=== PATIENT | male | born 1990 | race Two or more races ===

== ENCOUNTER 2017-04-28 20:33 | Emergency (ER) | payer SELFPAY ==
[~2017-04-28] VITALS: Ht 170.2 cm; Wt 81.6 kg
[~2017-04-28 20:33] MED LIST: CEPH500C PO; TRAM1TAB56 PO
[2017-04-28 20:45] VITALS: BP 152/81
--- NOTE | 2017-04-28 21:03 | PHYS DOC ---
Past Medical History Past Medical History: No Pertinent History Past Surgical History: No Surgical History Alcohol Use: None Drug Use: None Adult General Chief Complaint Chief Complaint: Congestion HPI HPI Patient is a 27 year old male presents to the emergency department with family member who speaks Australian. Patient speaks Sudanese only. They provided information that the patient has had a cough for the last 2 weeks and is having left back pain towards the upper back. He stated he only has the pain and discomfort when he coughs. He has not taken anything for the cough and congestion. They deny any fever, chills or any nausea vomiting. He denies the cough being productive. Review of Systems Review of Systems Constitutional: Denies fever or chills [] Eyes: Denies change in visual acuity, redness, or eye pain [] HENT: nasal congestion denies sore throat [] Respiratory: cough denies shortness of breath [] Cardiovascular: No additional information not addressed in HPI [] GI: Denies abdominal pain, nausea, vomiting, bloody stools or diarrhea [] : Denies dysuria or hematuria [] Musculoskeletal: Denies back pain or joint pain [] Integument: Denies rash or skin lesions [] Neurologic: Denies headache, focal weakness or sensory changes [] Endocrine: Denies polyuria or polydipsia [] Allergies Allergies Allergies Coded Allergies Type Severity Reaction Last Updated Verified No Known Drug Allergies 10/03/13 No Physical Exam Physical Exam Constitutional: Well developed, well nourished, no acute distress, non-toxic appearance. [] HENT: Normocephalic, atraumatic, bilateral external ears normal, oropharynx moist, no oral exudates, nose normal. Bilateral tympanic membranes appear to be normal. Throat with no erythematous no redness no exudate noted. No anterior cervical adenopathy noted. Eyes: PERRLA, EOMI, conjunctiva normal, no discharge. [] Neck: Normal range of motion, no tenderness, supple, no stridor. [] Cardiovascular:Heart rate regular rhythm, no murmur [] Lungs & Thorax: Bilateral breath sounds clear to auscultation [] Skin: Warm, dry, no erythema, no rash. [] Back: No tenderness Extremities: No tenderness, no cyanosis, no clubbing, ROM intact, no edema. [] Neurologic: Alert and oriented X 3, normal motor function, normal sensory function, no focal deficits noted. [] Psychologic: Affect normal, judgement normal, mood normal. [] Current Patient Data Vital Signs Vital Signs Date Time Temp Pulse Resp B/P (MAP) Pulse Ox O2 Delivery O2 Flow Rate FiO2 04/28/17 20:45 99.5 95 16 97 Room Air 99.5 EKG EKG [] Radiology/Procedures Radiology/Procedures [] Course & Med Decision Making Course & Med Decision Making Pertinent Labs and Imaging studies reviewed. (See chart for details) X-rays were negative for any abnormalities per Dr. Miguel.patient was provided with x-ray results. Recommended Mucinex DM [id number] antibiotics will be provided as well as prednisone. Patient will be discharged home in stable condition signs symptoms to return back to emergency department has been provided. All questions and concerns been answered at the bedside. Recommended ibuprofen for the back pain and discomfort. [] Dragon Disclaimer Dragon Disclaimer This electronic medical record was generated, in whole or in part, using a voice recognition dictation system. Departure Departure Impression: Primary Impression: URI (upper respiratory infection) Disposition: 01 HOME, SELF-CARE Condition: STABLE Referrals: TONJA AMADOR MD (PCP) Patient Instructions: Upper Respiratory Infection, Adult, [id number] Additional Instructions: Activity as tolerated. Medications as prescribed. Mucinex DM may be taken as instructed by [employer] systems admin [id number]. Tylenol or ibuprofen for fever chills or generalized body aches and discomfort. Drink plenty of fluids. Follow-up with primary care physician next week. Return back to emergency prior signs symptoms of become worse. Scripts Prednisone (PREDNISONE) 20 Mg Tablet 40 MG PO DAILY, #14 TAB Prov: ADALI MONTIEL APRN 04/28/17 Amoxicillin (AMOXICILLIN) 500 Mg Capsule 1 CAP PO BID, #20 CAP Prov: ADALI MONTIEL APRN 04/28/17 ADALI MNOTIEL APRN Apr 28, 2017 21:03
[2017-04-28] MEDS ORDERED: PRED20TA PO (21:12)
[2017-04-28] MEDS ORDERED: AMOX500C PO (21:12)
--- NOTE | 2017-04-29 09:38 | RAD ---
Chest, 2 views, 04/28/2017: History: Cough, back pain The heart size and pulmonary vascularity are normal. The lungs are clear. There is no evidence of pleural fluid. There is slight loss of height of the approximately the T6 vertebral body. IMPRESSION: 1. No acute cardiopulmonary abnormality is detected. 2. Slight loss of height of the T6 vertebral body of indeterminate age. Note: The findings were called to personnel in the [facility] ER at 9:35 AM on 04/29/2017.
== END 2017-04-28 21:37 | disposition home or self-care (01) ==
LOC: ER 20:33
DX: J06.9 Acute upper respiratory infection, unspecified (principal)
CPT/HCPCS: 71020; 99284

== ENCOUNTER 2017-05-02 00:29 | Emergency (ER) | payer SELFPAY ==
[~2017-05-02] VITALS: Ht 170.2 cm; Wt 81.6 kg
[~2017-05-02 00:29] MED LIST changes: +AMOX500C PO; +PRED20TA PO
--- NOTE | 2017-05-02 00:39 | PHYS DOC ---
Past Medical History Past Medical History: No Pertinent History Past Surgical History: No Surgical History Alcohol Use: None Drug Use: None Adult General Chief Complaint Chief Complaint: Congestion HPI HPI Patient is a 27 year old Togolese speaking male presents to the emergency department with a 2 week history of upper respiratory symptoms. 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 Patient reports she's had a half week history of upper respiratory symptoms. He states that he was evaluated in the emergency department 3 days ago and prescribed amoxicillin and prednisone for an upper respiratory infection. He states he began taking the medication just today but seems to got worse. He reports persistent cough without fever, nausea, vomiting, chest pain, abdominal pain. Review of Systems Review of Systems Constitutional: Denies fever or chills [] Eyes: Denies change in visual acuity, redness, or eye pain [] HENT: Denies nasal congestion or sore throat [] Respiratory: Cough, wheezing Cardiovascular: No additional information not addressed in HPI [] GI: Denies abdominal pain, nausea, vomiting, bloody stools or diarrhea [] : Denies dysuria or hematuria [] Musculoskeletal: Denies back pain or joint pain [] Integument: Denies rash or skin lesions [] Neurologic: Denies headache, focal weakness or sensory changes [] Endocrine: Denies polyuria or polydipsia [] Current Medications Current Medications Current Medications Medications (Trade) Dose Ordered Sig/Marybeth Start Time Stop Time Status Last Admin Dose Admin Albuterol/ Ipratropium (Duoneb) 3 ml 1X ONCE 05/02/17 01:00 05/02/17 01:01 DC 05/02/17 01:00 3 ML Allergies Allergies Allergies Coded Allergies Type Severity Reaction Last Updated Verified No Known Drug Allergies 10/03/13 No Physical Exam Physical Exam Constitutional: Well developed, well nourished, no acute distress, non-toxic appearance. [] HENT: Normocephalic, atraumatic, bilateral external ears normal, oropharynx moist, posterior pharynx injected, no oral exudates, nose normal. [] Eyes: PERRLA, EOMI, conjunctiva normal, no discharge. [] Neck: Normal range of motion, no tenderness, supple, no stridor. [] Cardiovascular:Heart rate regular rhythm, no murmur [] Lungs & Thorax: Inspiratory extra wheezing throughout, symmetrical chest wall movement and pressure expiration, no retractions no use of the sensory muscles. Abdomen: Bowel sounds normal, soft, no tenderness, no masses, no pulsatile masses. [] Skin: Warm, dry, no erythema, no rash. [] Back: No tenderness, no CVA tenderness. [] Extremities: No tenderness, no cyanosis, no clubbing, ROM intact, no edema. [] Neurologic: Alert and oriented X 3, normal motor function, normal sensory function, no focal deficits noted. [] Current Patient Data Vital Signs Vital Signs Date Time Temp Pulse Resp B/P (MAP) Pulse Ox O2 Delivery O2 Flow Rate FiO2 05/02/17 00:59 97 Room Air 05/02/17 00:40 98.5 77 16 98.5 EKG EKG [] Radiology/Procedures Radiology/Procedures [] Course & Med Decision Making Course & Med Decision Making Pertinent Labs and Imaging studies reviewed. (See chart for details) [] Reevaluation: Patient received DuoNeb treatment, wheezing resolved. Persistent right posterior lower lobe rhonchi. Patient reports that he feels significantly better. I've asked that he stop the amoxicillin, he will take Biaxin, continue the prednisone as previously directed and albuterol will be prescribed per [facility]I inhaler. Patient verbalized understanding is in agreement the plan. He was advised to return to the emergency Department for new symptoms or concerns or worsening of current condition. He was also provided with smoking cessation information Dragon Disclaimer Dragon Disclaimer This electronic medical record was generated, in whole or in part, using a voice recognition dictation system. Departure Departure Impression: Primary Impression: Pneumonia Disposition: 01 HOME, SELF-CARE Condition: STABLE Referrals: TONJA AMADOR MD (PCP) Patient Instructions: Metered Dose Inhaler with Spacer, Pneumonia, Adult, Smoking Cessation Additional Instructions: Stop the amoxicillin. Continue prednisone as previously directed. Scripts Albuterol Sulfate (PROAIR HFA INHALER) 8.5 Gm Hfa.aer.ad 2 PUFF INH PRN Q6HRS Y for SHORTNESS OF BREATH, #2 INHALER 0 Refills Prov: LARRY YANES APRN 05/02/17 Clarithromycin (BIAXIN) 500 Mg Tablet 1 TAB PO BID, #20 TAB Prov: LARRY YANES APRN 05/02/17 Problem Qualifiers Primary Impression: Pneumonia Pneumonia type: due to unspecified organism Laterality: right Lung location : lower lobe of lung Qualified Codes: J18.1 - Lobar pneumonia, unspecified organism LARRY YANES [employer] May 02, 2017 00:39
[2017-05-02 00:40] VITALS: BP 159/72
[2017-05-02] MEDS ORDERED: IPRATRPIUM/ALBUTEROL 0.5/2.5MG 3 ML NEBU. NEB ONE (01:00)
[2017-05-02] MEDS ORDERED: PROAIR HFA8.5 GM INH (01:11)
[2017-05-02] MEDS ORDERED: CLAR500T3 PO (01:11)
== END 2017-05-02 01:20 | disposition home or self-care (01) ==
LOC: ER 00:29
DX: J18.1 Lobar pneumonia, unspecified organism (principal)
CPT/HCPCS: 94250; 94640; 99283; J7620